=== PATIENT | male | born 1940 | race Caucasian/White ===

== ENCOUNTER 2024-04-15 | Inpatient (IN) | payer MEDICARE, OTHER ==
[~2024-04-15] VITALS: Ht 185.4 cm; Wt 83.5 kg
[~2024-04-15] MED LIST: ACET325T53 GT; ASCO500T10 GT; CARB-300 GT; CEFE1VIA3 IV; DOCU-141 GT; DULO30CA2 GT; FAMO40OR2 GT; FERR300L GT; FLUD0.1T3 PO; LACT1CAP72 GT; MULT-1185 GT; Nut.tx.glucose Intolerance,Soy GT; QUET25TA PO; RIVA10TA GT; TAMS-3 PO; TERA2CAP4 GT; TERA5CAP4 GT; ZINC1CAP2 GT
[2024-04-16] MEDS ORDERED: HYDROGEN PEROXIDE 3% 118 ML BOTTLE TP PRN (08:15)
[2024-04-16] MEDS ORDERED: REMEDY ESSENTIAL ZINC PASTE 113 GM TP PRN (08:15)
[2024-04-16] MEDS ORDERED: ACETAMINOPHEN 650 MG/20 ML UDC- SA PATIENTS-FEVER ONLY GT PRN (08:15)
[2024-04-16] MEDS ORDERED: ALBUTEROL SULFATE 2.5 MG/3 ML NEBU NEB PRN (08:15)
[2024-04-16] MEDS ORDERED: MAG HYDROX/AL HYDROX/SIMETH 30 ML LIQUID UDC GT PRN (08:15)
[2024-04-16] MEDS ORDERED: IPRATROPIUM BROMIDE 0.5 MG/2.5 ML NEBU NEB PRN (08:15)
[2024-04-16] MEDS: REMEDY ESSENTIAL ZINC PASTE 113 GM TP SCH (09:20)
[2024-04-16] MEDS: POLYETHYLENE GLYCOL 3350 238 GM POWDER PO SCH (09:20)
[2024-04-16] MEDS: VITAMINS A AND D 5 GM UD PKT TP SCH (09:20)
[2024-04-16] MEDS: DULOXETINE HCL 40 MG GT SCH (09:20)
[2024-04-16] MEDS: HARRIS FLUSH ENEMA PR SCH (09:20)
[2024-04-16] MEDS: FINASTERIDE 5 MG TABLET GT SCH (09:20)
[2024-04-16] MEDS: DOCUSATE SODIUM 100 MG/10 ML LIQUID UDC GT SCH (09:20)
[2024-04-16] MEDS: HYDROGEN PEROXIDE 3% 118 ML BOTTLE TP SCH (09:39)
[2024-04-16] MEDS: SIMETHICONE 80 MG TAB.CHEW GT SCH (12:00)
[2024-04-16] MEDS: BACLOFEN 10 MG TABLET GT SCH (13:37)
[2024-04-16] MEDS: ACIDOPHILUS/BULGARICUS CHEW TAB GT SCH (17:39)
[2024-04-16 20:03] VITALS: TEMP 98.1
[2024-04-16] MEDS: PROTEIN SUPPLEMENT (PROSTAT) 30 ML LIQUID GT SCH (21:52)
[2024-04-16] MEDS: MULTIVIT, IRON, MIN NO. 8, FA TABLET GT SCH (21:52)
[2024-04-17] MEDS: OMEPRAZOLE 20 MG CAPSULE.DR GT SCH (06:35)
[2024-04-17 07:52] VITALS: TEMP 98.9
[2024-04-17 19:59] VITALS: TEMP 97.4
[2024-04-18] MEDS: JEVITY 1.2 1000 ML LIQUID GT PRN (02:16)
[2024-04-18 07:58] VITALS: TEMP 97.1
[2024-04-18 20:01] VITALS: TEMP 97.7
[2024-04-19 07:34] VITALS: TEMP 97.6
[2024-04-19 19:58] VITALS: TEMP 98
[2024-04-19 22:35] VITALS: TEMP 98
[2024-04-20 07:30] VITALS: TEMP 97.7
[2024-04-20 08:36] LABS: BASOPHILS % (AUTO) 0.5 % (0.0-2.0); EOSINOPHILS # (AUTO) 0.3 K/uL (0.0-0.7); EOSINOPHILS % (AUTO) 4.5 % (0.0-7.0); HEMATOCRIT 33.8 % (36.7-47.1); HEMOGLOBIN 11.7 g/dL (12.5-16.3); LYMPHOCYTES # (AUTO) 1.4 K/uL (0.8-4.8); LYMPHOCYTES % (AUTO) 20.8 % (20.5-51.5); MEAN CORPUSCULAR HGB CONC 35 g/dL (32.5-36.3); MEAN CORPUSCULAR VOLUME 83.6 fL (73.0-96.2); MONOCYTES # (AUTO) 0.4 K/uL (0.1-1.30); MONOCYTES % (AUTO) 6.2 % (0.0-11.0); NEUTROPHILS # (AUTO) 4.7 K/uL (1.8-8.9); PLATELET COUNT (AUTO) 165 K/uL (152-348); RED BLOOD CELL COUNT(AUTO) 4.04 MIL/uL (4.06-5.63); RED CELL DISTRIBUTION WIDTH 15.8 % (12.1-16.2); WHITE BLOOD COUNT (AUTO) 6.9 K/uL (3.6-10.2)
[2024-04-20 08:40] LABS: DIFFERENTIAL COMMENT 1
[2024-04-20 08:52] LABS: CALCIUM 8.8 mg/dL (8.5-10.1); CARBON DIOXIDE 26 mmol/L (21-32); CHLORIDE 104 mmol/L (98-107); CREATININE 0.6 mg/dL (0.6-1.3); GLUCOSE 115 mg/dL (74-106); MAGNESIUM 1.9 mg/dL (1.8-2.4); PHOSPHOROUS 2.9 mg/dL (2.5-4.9); POTASSIUM 4.4 mmol/L (3.5-5.1); SODIUM SERUM 139 mmol/L (136-145); UREA NITROGEN, BLOOD 30 mg/dL (7-18)
[2024-04-20 19:54] VITALS: TEMP 98.3
[2024-04-20 22:58] VITALS: TEMP 98.3
[2024-04-21 07:26] VITALS: TEMP 98.5
[2024-04-21 19:51] VITALS: TEMP 97.6
[2024-04-22 07:51] VITALS: TEMP 97.9
[2024-04-22 19:49] VITALS: TEMP 97.6
[2024-04-23 07:30] VITALS: TEMP 97.9
[2024-04-23 20:17] VITALS: TEMP 97.7
[2024-04-24 08:25] VITALS: TEMP 97.6
[2024-04-24 10:00] VITALS: O2SAT 98
[2024-04-24 10:05] VITALS: O2SAT 98
[2024-04-24 20:00] VITALS: TEMP 98.8
[2024-04-25 08:09] VITALS: TEMP 97.6
[2024-04-25 20:00] VITALS: TEMP 97.7
[2024-04-26 20:00] VITALS: TEMP 97.5
[2024-04-27 07:26] VITALS: TEMP 98.5
[2024-04-27 20:00] VITALS: TEMP 97.6
[2024-04-28 07:24] VITALS: TEMP 99
[2024-04-28 20:00] VITALS: TEMP 97.7
[2024-04-29 07:29] VITALS: TEMP 97.8
[2024-04-29 20:30] VITALS: TEMP 97.6
[2024-04-30 07:58] VITALS: TEMP 98.6
[2024-04-30 20:00] VITALS: TEMP 98.5
[2024-05-01] MEDS: HARRIS FLUSH ENEMA PR PRN (04:25)
[2024-05-01 07:40] VITALS: TEMP 97.8
[2024-05-01] MEDS: MAGNESIUM HYDROXIDE 30 ML LIQUID UDC GT PRN (16:15)
[2024-05-01 20:06] VITALS: TEMP 98.5
[2024-05-02 08:22] VITALS: TEMP 94.5; TEMP 98.6
[2024-05-02 19:54] VITALS: TEMP 98
[2024-05-03 07:40] VITALS: TEMP 97.8
[2024-05-03 20:00] VITALS: TEMP 99
[2024-05-04 07:22] VITALS: TEMP 98.9
[2024-05-04 20:00] VITALS: TEMP 98.6
[2024-05-05 07:37] VITALS: TEMP 97.5
[2024-05-05 20:00] VITALS: TEMP 98.7
[2024-05-06 08:03] VITALS: TEMP 99.1
[2024-05-06 09:00] VITALS: TEMP 99.2
[2024-05-06 16:00] VITALS: TEMP 99.2
[2024-05-06 20:14] VITALS: TEMP 97.8
[2024-05-07 07:59] VITALS: TEMP 97.7
[2024-05-07 20:03] VITALS: TEMP 97.6
[2024-05-07] MEDS: POLYETHYLENE GLYCOL 3350 238 GM POWDER GT SCH (21:06)
[2024-05-08 07:51] VITALS: TEMP 98.7
[2024-05-08 20:19] VITALS: TEMP 99
[2024-05-09 08:15] VITALS: TEMP 99
[2024-05-09 19:59] VITALS: TEMP 98.3
[2024-05-10 07:45] VITALS: TEMP 98.3
[2024-05-10 20:00] VITALS: TEMP 98
[2024-05-11 07:31] VITALS: TEMP 98
[2024-05-11 19:58] VITALS: TEMP 98.2
[2024-05-11 20:00] VITALS: TEMP 98.2
[2024-05-12 07:34] VITALS: TEMP 98.7
[2024-05-12 20:00] VITALS: TEMP 98.1
[2024-05-13 07:31] VITALS: TEMP 98.4
[2024-05-13 20:00] VITALS: TEMP 97.7
[2024-05-14 08:09] VITALS: TEMP 98
[2024-05-14 20:04] VITALS: TEMP 98.4
[2024-05-15 07:45] VITALS: TEMP 97.9
[2024-05-15 20:22] VITALS: TEMP 98.1
[2024-05-16 08:01] VITALS: TEMP 97.7
[2024-05-16 20:00] VITALS: TEMP 98.4
[2024-05-17 07:22] VITALS: TEMP 97.5
[2024-05-17 20:06] VITALS: TEMP 97.9
[2024-05-18 07:52] VITALS: TEMP 98.3
[2024-05-18 11:32] VITALS: TEMP 98.3
[2024-05-18 20:00] VITALS: TEMP 98.4
[2024-05-19 07:23] VITALS: TEMP 98.2
[2024-05-19 19:47] VITALS: TEMP 98.3
[2024-05-20 07:54] VITALS: TEMP 99.8
[2024-05-20] MEDS: ACETAMINOPHEN 650 MG/20 ML UDC- SA PATIENTS-PAIN ONLY GT PRN (08:34)
[2024-05-20 09:34] VITALS: TEMP 98.7
[2024-05-20 20:00] VITALS: TEMP 97.7
[2024-05-21 07:44] VITALS: TEMP 98.4
[2024-05-21 19:54] VITALS: TEMP 97.6
[2024-05-22 07:58] VITALS: TEMP 98.4
[2024-05-22 20:51] VITALS: TEMP 97.9
[2024-05-23 08:08] VITALS: TEMP 99
[2024-05-23 19:46] VITALS: TEMP 97.6
[2024-05-23 19:55] VITALS: TEMP 98.4
[2024-05-24 07:49] VITALS: TEMP 97.8
[2024-05-24 08:39] LABS: BASOPHILS % (AUTO) 0.6 % (0.0-2.0); EOSINOPHILS # (AUTO) 0.2 K/uL (0.0-0.7); EOSINOPHILS % (AUTO) 3.6 % (0.0-7.0); HEMATOCRIT 33.7 % (36.7-47.1); HEMOGLOBIN 11.4 g/dL (12.5-16.3); LYMPHOCYTES # (AUTO) 1.7 K/uL (0.8-4.8); LYMPHOCYTES % (AUTO) 31.8 % (20.5-51.5); MEAN CORPUSCULAR HEMOGLOBIN 28.8 uug (23.8-33.4); MEAN CORPUSCULAR HGB CONC 34 g/dL (32.5-36.3); MEAN CORPUSCULAR VOLUME 85.4 fL (73.0-96.2); MONOCYTES # (AUTO) 0.4 K/uL (0.1-1.30); NEUTROPHILS # (AUTO) 3.1 K/uL (1.8-8.9); PLATELET COUNT (AUTO) 244 K/uL (152-348); RED BLOOD CELL COUNT(AUTO) 3.95 MIL/uL (4.06-5.63); WHITE BLOOD COUNT (AUTO) 5.4 K/uL (3.6-10.2)
[2024-05-24 08:52] LABS: CALCIUM 8.9 mg/dL (8.5-10.1); CARBON DIOXIDE 30 mmol/L (21-32); CHLORIDE 103 mmol/L (98-107); CREATININE 0.7 mg/dL (0.6-1.3); DIFFERENTIAL COMMENT 1; GLUCOSE 113 mg/dL (74-106); MAGNESIUM 2.1 mg/dL (1.8-2.4); PHOSPHOROUS 3.1 mg/dL (2.5-4.9); POTASSIUM 4.6 mmol/L (3.5-5.1); SODIUM SERUM 139 mmol/L (136-145); UREA NITROGEN, BLOOD 29 mg/dL (7-18)
[2024-05-24 20:23] VITALS: TEMP 97.9
[2024-05-25 10:30] VITALS: O2SAT 99
[2024-05-25 11:16] VITALS: TEMP 97.5
[2024-05-25 19:51] VITALS: TEMP 98.2
[2024-05-26 07:42] VITALS: TEMP 97.1
[2024-05-26 20:19] VITALS: TEMP 97.6
[2024-05-27 07:45] VITALS: TEMP 98.6
[2024-05-27 19:46] VITALS: TEMP 97.5
[2024-05-27 20:00] VITALS: TEMP 97.5
[2024-05-28 07:35] VITALS: TEMP 97.5
[2024-05-28 20:00] VITALS: TEMP 97.6
[2024-05-29 16:05] VITALS: TEMP 97.8
[2024-05-29 20:00] VITALS: TEMP 98.5
[2024-05-30 08:14] VITALS: TEMP 97.8
[2024-05-30 19:49] VITALS: TEMP 98.1
[2024-05-31 07:34] VITALS: TEMP 98.5
[2024-05-31 20:17] VITALS: TEMP 97.6
[2024-06-01 07:33] VITALS: TEMP 97.7
[2024-06-01 19:59] VITALS: TEMP 98.4
[2024-06-01 23:13] VITALS: TEMP 98.4
[2024-06-02 08:00] VITALS: TEMP 98.7
[2024-06-02 20:07] VITALS: TEMP 98.5
[2024-06-03] MEDS: NEOMY/BACITRA/POLYMYXIN B OINT UD PACKET TP SCH (09:00)
[2024-06-03 20:38] VITALS: TEMP 97.7
[2024-06-04 11:53] VITALS: TEMP 97.8
[2024-06-04 19:53] VITALS: TEMP 97.6
[2024-06-04 20:00] VITALS: TEMP 97.6
[2024-06-05 13:04] VITALS: TEMP 98
[2024-06-05 20:20] VITALS: TEMP 97.7
[2024-06-06 19:48] VITALS: TEMP 97.8
[2024-06-07 08:30] VITALS: TEMP 97.9
[2024-06-07 20:00] VITALS: TEMP 97.5
[2024-06-08 08:24] VITALS: TEMP 98.6
[2024-06-08 20:00] VITALS: TEMP 98.3
[2024-06-09 07:55] VITALS: TEMP 97.8
[2024-06-09 20:03] VITALS: TEMP 97.6
[2024-06-10] MEDS: POLYVINYL ALCOHOL OPHT DROPS 15 ML BOTTLE EACHEYE SCH (13:53)
[2024-06-10 20:51] VITALS: TEMP 100.9
[2024-06-11] MEDS: NEOMY/BACITRA/POLYMYXIN B OINT UD PACKET TP SCH (08:54)
[2024-06-11 09:38] LABS: BASOPHILS % (AUTO) 0.4 % (0.0-2.0); EOSINOPHILS # (AUTO) 0.1 K/uL (0.0-0.7); EOSINOPHILS % (AUTO) 1.9 % (0.0-7.0); HEMOGLOBIN 11.6 g/dL (12.5-16.3); LYMPHOCYTES # (AUTO) 1.3 K/uL (0.8-4.8); LYMPHOCYTES % (AUTO) 18.1 % (20.5-51.5); MEAN CORPUSCULAR HEMOGLOBIN 28.8 uug (23.8-33.4); MEAN CORPUSCULAR HGB CONC 33 g/dL (32.5-36.3); MEAN CORPUSCULAR VOLUME 86.7 fL (73.0-96.2); MONOCYTES # (AUTO) 0.8 K/uL (0.1-1.30); MONOCYTES % (AUTO) 10.4 % (0.0-11.0); NEUTROPHILS % (AUTO) 69.2 % (38.5-71.5); PLATELET COUNT (AUTO) 161 K/uL (152-348); RED BLOOD CELL COUNT(AUTO) 4.04 MIL/uL (4.06-5.63); RED CELL DISTRIBUTION WIDTH 14.9 % (12.1-16.2); WHITE BLOOD COUNT (AUTO) 7.3 K/uL (3.6-10.2)
[2024-06-11 09:49] VITALS: TEMP 98.5
[2024-06-11 09:54] LABS: CALCIUM 9.2 mg/dL (8.5-10.1); CARBON DIOXIDE 29 mmol/L (21-32); CHLORIDE 102 mmol/L (98-107); GLUCOSE 134 mg/dL (74-106); POTASSIUM 4.3 mmol/L (3.5-5.1); SODIUM SERUM 137 mmol/L (136-145); UREA NITROGEN, BLOOD 58 mg/dL (7-18)
[2024-06-11 19:47] VITALS: TEMP 97.9
[2024-06-12 07:58] VITALS: TEMP 96.7
[2024-06-12 19:46] VITALS: TEMP 98.8
[2024-06-13 08:00] VITALS: TEMP 97.6
[2024-06-13 21:03] VITALS: TEMP 98.5
[2024-06-14 08:00] VITALS: TEMP 97.8
[2024-06-14 20:00] VITALS: TEMP 98.5
[2024-06-15 08:00] VITALS: TEMP 98.2
[2024-06-15 19:56] VITALS: TEMP 97.6
[2024-06-16 07:44] VITALS: TEMP 98.5
[2024-06-16 20:04] VITALS: TEMP 98.7
[2024-06-17 07:50] VITALS: TEMP 98.7
[2024-06-17 21:41] VITALS: TEMP 97.5
[2024-06-18 08:00] VITALS: TEMP 97
[2024-06-18 20:44] VITALS: TEMP 98.7
[2024-06-19 08:42] VITALS: TEMP 98.7
[2024-06-19 20:00] VITALS: TEMP 98.7
[2024-06-20 08:13] VITALS: TEMP 98.6
[2024-06-20 20:00] VITALS: TEMP 98.7
[2024-06-21 07:59] VITALS: TEMP 98.3
[2024-06-21 20:50] VITALS: TEMP 98.6
[2024-06-22 07:31] VITALS: TEMP 97.8
[2024-06-22 10:30] VITALS: O2SAT 98
[2024-06-22 20:22] VITALS: TEMP 97.7
[2024-06-23 07:30] VITALS: TEMP 97.5
[2024-06-23 20:00] VITALS: TEMP 98.2
[2024-06-24 20:00] VITALS: TEMP 98.5
[2024-06-25 08:07] VITALS: TEMP 98.8
[2024-06-25 20:19] VITALS: TEMP 99.4
[2024-06-26 08:15] VITALS: TEMP 97.6
[2024-06-26 20:00] VITALS: TEMP 97.6
[2024-06-27 08:29] VITALS: TEMP 98.5
[2024-06-27 20:00] VITALS: TEMP 97.5
[2024-06-28 08:16] VITALS: TEMP 97.7
[2024-06-28 09:15] LABS: BASOPHILS % (AUTO) 0.4 % (0.0-2.0); EOSINOPHILS # (AUTO) 0.2 K/uL (0.0-0.7); EOSINOPHILS % (AUTO) 2.2 % (0.0-7.0); HEMATOCRIT 36.7 % (36.7-47.1); HEMOGLOBIN 12.5 g/dL (12.5-16.3); LYMPHOCYTES # (AUTO) 1.3 K/uL (0.8-4.8); LYMPHOCYTES % (AUTO) 13.1 % (20.5-51.5); MEAN CORPUSCULAR HEMOGLOBIN 28.9 uug (23.8-33.4); MEAN CORPUSCULAR HGB CONC 34 g/dL (32.5-36.3); MONOCYTES # (AUTO) 0.5 K/uL (0.1-1.30); NEUTROPHILS # (AUTO) 7.6 K/uL (1.8-8.9); NEUTROPHILS % (AUTO) 79.3 % (38.5-71.5); PLATELET COUNT (AUTO) 276 K/uL (152-348); RED BLOOD CELL COUNT(AUTO) 4.32 MIL/uL (4.06-5.63); RED CELL DISTRIBUTION WIDTH 14.7 % (12.1-16.2); WHITE BLOOD COUNT (AUTO) 9.6 K/uL (3.6-10.2)
[2024-06-28 09:20] LABS: DIFFERENTIAL COMMENT 1
[2024-06-28 09:30] LABS: CALCIUM 9.3 mg/dL (8.5-10.1); CARBON DIOXIDE 27 mmol/L (21-32); CHLORIDE 102 mmol/L (98-107); CREATININE 0.7 mg/dL (0.6-1.3); GLUCOSE 151 mg/dL (74-106); MAGNESIUM 2.2 mg/dL (1.8-2.4); PHOSPHOROUS 3.1 mg/dL (2.5-4.9); POTASSIUM 3.9 mmol/L (3.5-5.1); SODIUM SERUM 136 mmol/L (136-145); UREA NITROGEN, BLOOD 38 mg/dL (7-18)
[2024-06-28 20:00] VITALS: TEMP 97.9
[2024-06-29 08:04] VITALS: TEMP 98.7
[2024-06-29 20:00] VITALS: TEMP 98.7
[2024-06-30 11:13] VITALS: TEMP 98.1
[2024-06-30 20:00] VITALS: TEMP 98.8
[2024-07-01 07:13] VITALS: TEMP 98.4
[2024-07-01 20:04] VITALS: TEMP 97.6
[2024-07-01 20:37] VITALS: TEMP 97.7
[2024-07-02 08:00] VITALS: TEMP 97.6
[2024-07-02 20:00] VITALS: TEMP 97.7
[2024-07-03 08:07] VITALS: BP 134/73; TEMP 98.1; O2SAT 100
[2024-07-03 19:52] VITALS: TEMP 97.8
[2024-07-03 20:00] VITALS: TEMP 97.8
[2024-07-04 08:39] VITALS: TEMP 98.6
[2024-07-04 20:00] VITALS: TEMP 99.6
[2024-07-05 08:13] VITALS: TEMP 98
[2024-07-05 20:00] VITALS: TEMP 98.8
[2024-07-05 20:37] VITALS: TEMP 98.8
[2024-07-06 07:55] VITALS: TEMP 99
[2024-07-06 08:06] VITALS: TEMP 99
[2024-07-06 20:00] VITALS: TEMP 98.9
[2024-07-07 07:56] VITALS: BP 128/65; TEMP 98.8; O2SAT 99
[2024-07-07 20:00] VITALS: TEMP 98.7
[2024-07-08 08:00] VITALS: TEMP 98.5
[2024-07-08 10:27] VITALS: TEMP 98.5
[2024-07-08 20:00] VITALS: TEMP 98.6
[2024-07-09 08:03] VITALS: TEMP 97
[2024-07-09 20:04] VITALS: TEMP 97.9
[2024-07-10 07:41] VITALS: TEMP 98
[2024-07-10 20:00] VITALS: TEMP 98.6
[2024-07-11 08:15] VITALS: TEMP 97
[2024-07-11 20:00] VITALS: TEMP 98.4
[2024-07-12 07:45] VITALS: TEMP 98
[2024-07-12 21:55] VITALS: TEMP 98.7
[2024-07-13 08:00] VITALS: TEMP 98.7
[2024-07-13 20:22] VITALS: TEMP 98.5
[2024-07-14 07:51] VITALS: TEMP 98.2
[2024-07-14 19:57] VITALS: TEMP 98.5
[2024-07-14 23:25] VITALS: TEMP 98.5
[2024-07-15 07:49] VITALS: TEMP 97.8
[2024-07-15 20:04] VITALS: TEMP 97.4
[2024-07-16 07:42] VITALS: TEMP 97
[2024-07-16 19:54] VITALS: TEMP 97.6
[2024-07-17 07:52] VITALS: BP 138/65; TEMP 98.8; O2SAT 90
[2024-07-17 19:53] VITALS: TEMP 97.4
[2024-07-18 08:04] VITALS: TEMP 97
[2024-07-18 19:46] VITALS: TEMP 97.8
[2024-07-19 08:04] VITALS: TEMP 97.5
[2024-07-19 20:01] VITALS: TEMP 98.9
[2024-07-20 07:27] LABS: BASOPHILS % (AUTO) 0.2 % (0.0-2.0); EOSINOPHILS # (AUTO) 0.1 K/uL (0.0-0.7); EOSINOPHILS % (AUTO) 1.3 % (0.0-7.0); HEMATOCRIT 37.1 % (36.7-47.1); HEMOGLOBIN 12.4 g/dL (12.5-16.3); LYMPHOCYTES # (AUTO) 1.8 K/uL (0.8-4.8); LYMPHOCYTES % (AUTO) 17.2 % (20.5-51.5); MEAN CORPUSCULAR HEMOGLOBIN 28.5 uug (23.8-33.4); MEAN CORPUSCULAR HGB CONC 34 g/dL (32.5-36.3); MEAN CORPUSCULAR VOLUME 85.1 fL (73.0-96.2); MONOCYTES # (AUTO) 0.8 K/uL (0.1-1.30); MONOCYTES % (AUTO) 7.5 % (0.0-11.0); NEUTROPHILS # (AUTO) 7.9 K/uL (1.8-8.9); NEUTROPHILS % (AUTO) 73.8 % (38.5-71.5); PLATELET COUNT (AUTO) 285 K/uL (152-348); RED BLOOD CELL COUNT(AUTO) 4.36 MIL/uL (4.06-5.63); RED CELL DISTRIBUTION WIDTH 14.2 % (12.1-16.2); WHITE BLOOD COUNT (AUTO) 10.7 K/uL (3.6-10.2)
[2024-07-20 07:53] LABS: DIFFERENTIAL COMMENT 1
[2024-07-20 08:06] LABS: CALCIUM 9.3 mg/dL (8.5-10.1); CARBON DIOXIDE 31 mmol/L (21-32); CHLORIDE 105 mmol/L (98-107); CREATININE 0.6 mg/dL (0.6-1.3); GLUCOSE 121 mg/dL (74-106); MAGNESIUM 2.3 mg/dL (1.8-2.4); PHOSPHOROUS 3.4 mg/dL (2.5-4.9); POTASSIUM 4.4 mmol/L (3.5-5.1); SODIUM SERUM 140 mmol/L (136-145); UREA NITROGEN, BLOOD 32 mg/dL (7-18)
[2024-07-20 08:07] VITALS: TEMP 97
[2024-07-20] MEDS ORDERED: DIATR MEGLU/DIATRIZOATE SODIUM 30 ML BOTTLE ONE (10:31)
[2024-07-20 20:51] VITALS: TEMP 98
[2024-07-21] MEDS ORDERED: DIATR MEGLU/DIATRIZOATE SODIUM 30 ML BOTTLE ONE (02:43)
[2024-07-21 08:00] VITALS: TEMP 97.6
[2024-07-21 19:55] VITALS: TEMP 98
[2024-07-22 07:57] VITALS: TEMP 98.7
[2024-07-22 08:03] VITALS: TEMP 98.7
[2024-07-22 19:53] VITALS: TEMP 97
[2024-07-23 07:50] VITALS: O2SAT 98
[2024-07-23 08:00] VITALS: TEMP 98.1
[2024-07-23 20:17] VITALS: TEMP 98.5
[2024-07-24 07:55] VITALS: TEMP 97.5
[2024-07-24 20:10] VITALS: TEMP 98.7
[2024-07-25 07:52] VITALS: TEMP 97.6
[2024-07-25 20:00] VITALS: TEMP 98.8
[2024-07-26 11:24] VITALS: TEMP 97.8
[2024-07-26 20:00] VITALS: TEMP 99
[2024-07-27 07:32] VITALS: TEMP 97.8
[2024-07-27 20:43] VITALS: TEMP 98.2
[2024-07-27] MEDS: NYSTATIN CREAM 30 GM TUBE TP SCH ×2 (21:30→21:32)
[2024-07-28 07:33] VITALS: TEMP 98
[2024-07-28 20:53] VITALS: TEMP 98.5
[2024-07-29 07:45] VITALS: TEMP 99
[2024-07-29 20:16] VITALS: TEMP 98.6
[2024-07-30 07:48] VITALS: TEMP 98
[2024-07-30 22:29] VITALS: TEMP 97.7
[2024-07-31 07:47] VITALS: TEMP 97.8
[2024-07-31 19:49] VITALS: TEMP 98.3
[2024-08-01 08:30] VITALS: TEMP 97.6
[2024-08-01] MEDS: NEOMY/BACITRA/POLYMYXIN B OINT UD PACKET TP SCH (15:47)
[2024-08-01 20:05] VITALS: TEMP 98.7
[2024-08-02 07:42] LABS: *BILIRUBIN,URIN NEGATIVE (NEGATIVE); *BLOOD, URINE 2+ (NEGATIVE); *CLARITY,URINE CLEAR (CLEAR); *COLOR,URINE YELLOW (YELLOW); *KETONES,URINE NEGATIVE (NEGATIVE); *PROTEIN,URINE 2+ (NEGATIVE); *UROBILINOGEN,URINE 0.2 E.U./dl (NORMAL); LEUKOCYTE ESTERASE ,URINE 3+ (NEGATIVE); NITRITE, URINE NEGATIVE (NEGATIVE); PH,URINE 7.5 (5.0-8.0); UGLUCOSE NEGATIVE (NEGATIVE)
[2024-08-02 08:30] VITALS: TEMP 98.1
[2024-08-02 08:33] LABS: BACTERIA,URINE MANY /HPF (NONE SEEN); SQUAMOUS EPITHELIAL CELL,UR FEW /HPF (NONE SEEN); WBC,URINE TNTC /HPF (0-3)
[2024-08-02 20:00] VITALS: TEMP 97.4
[2024-08-03 07:47] VITALS: TEMP 98.9
[2024-08-03 15:10] LABS: BASOPHILS % (AUTO) 0.2 % (0.0-2.0); EOSINOPHILS % (AUTO) 0.2 % (0.0-7.0); HEMATOCRIT 39.3 % (36.7-47.1); LYMPHOCYTES # (AUTO) 1.3 K/uL (0.8-4.8); LYMPHOCYTES % (AUTO) 9.2 % (20.5-51.5); MEAN CORPUSCULAR HEMOGLOBIN 27.7 uug (23.8-33.4); MEAN CORPUSCULAR HGB CONC 33 g/dL (32.5-36.3); MONOCYTES # (AUTO) 0.7 K/uL (0.1-1.30); MONOCYTES % (AUTO) 5.1 % (0.0-11.0); NEUTROPHILS # (AUTO) 12.2 K/uL (1.8-8.9); NEUTROPHILS % (AUTO) 85.3 % (38.5-71.5); PLATELET COUNT (AUTO) 197 K/uL (152-348); RED BLOOD CELL COUNT(AUTO) 4.67 MIL/uL (4.06-5.63); RED CELL DISTRIBUTION WIDTH 14.6 % (12.1-16.2); WHITE BLOOD COUNT (AUTO) 14.3 K/uL (3.6-10.2)
[2024-08-03 15:16] LABS: CALCIUM 9.2 mg/dL (8.5-10.1); CARBON DIOXIDE 26 mmol/L (21-32); CHLORIDE 103 mmol/L (98-107); CREATININE 0.6 mg/dL (0.6-1.3); GLUCOSE 147 mg/dL (74-106); POTASSIUM 4.5 mmol/L (3.5-5.1); SODIUM SERUM 138 mmol/L (136-145); UREA NITROGEN, BLOOD 33 mg/dL (7-18)
[2024-08-03 15:47] LABS: DIFFERENTIAL COMMENT 1
[2024-08-03 20:11] VITALS: TEMP 100.8
[2024-08-04] VITALS: TEMP 99
[2024-08-04 05:00] VITALS: TEMP 98.8
[2024-08-04 07:36] VITALS: TEMP 99
[2024-08-04 19:47] VITALS: TEMP 98.5
[2024-08-04 20:57] LABS: *BILIRUBIN,URIN NEGATIVE (NEGATIVE); *BLOOD, URINE 2+ (NEGATIVE); *CLARITY,URINE CLOUDY (CLEAR); *COLOR,URINE YELLOW (YELLOW); *KETONES,URINE NEGATIVE (NEGATIVE); *UROBILINOGEN,URINE 0.2 E.U./dl (NORMAL); LEUKOCYTE ESTERASE ,URINE 3+ (NEGATIVE); NITRITE, URINE NEGATIVE (NEGATIVE); UGLUCOSE NEGATIVE (NEGATIVE)
[2024-08-04 21:01] LABS: *PROTEIN,URINE 3+ (NEGATIVE)
[2024-08-04 22:01] VITALS: TEMP 98.5
[2024-08-05 07:44] VITALS: TEMP 99
[2024-08-05 20:46] VITALS: TEMP 97.7
[2024-08-06] MEDS: IV D5/ 0.9% NACL 1,000 ML IV SCH (15:00)
[2024-08-06 17:42] LABS: *BILIRUBIN,URIN NEGATIVE (NEGATIVE); *BLOOD, URINE 2+ (NEGATIVE); *COLOR,URINE YELLOW (YELLOW); *KETONES,URINE NEGATIVE (NEGATIVE); *PROTEIN,URINE 3+ (NEGATIVE); LEUKOCYTE ESTERASE ,URINE 3+ (NEGATIVE); NITRITE, URINE POSITIVE (NEGATIVE); PH,URINE 8.5 (5.0-8.0); UGLUCOSE NEGATIVE (NEGATIVE)
[2024-08-06 18:04] LABS: *CLARITY,URINE CLOUDY (CLEAR)
[2024-08-06 18:32] LABS: BACTERIA,URINE MANY /HPF (NONE SEEN); SQUAMOUS EPITHELIAL CELL,UR FEW /HPF (NONE SEEN); WBC,URINE 50-80 /HPF (0-3)
[2024-08-06 18:33] LABS: TRIPLE PHOSPHATE CRYSTAL,UR MODERATE /HPF (NONE SEEN); URINE AMORPHOUS PHOSPHATES MANY /HPF
[2024-08-06 19:58] VITALS: TEMP 98.9
[2024-08-07 07:44] LABS: BASOPHILS % (AUTO) 0.6 % (0.0-2.0); EOSINOPHILS # (AUTO) 0.2 K/uL (0.0-0.7); EOSINOPHILS % (AUTO) 4.1 % (0.0-7.0); HEMATOCRIT 33.4 % (36.7-47.1); HEMOGLOBIN 11.1 g/dL (12.5-16.3); LYMPHOCYTES # (AUTO) 1.5 K/uL (0.8-4.8); LYMPHOCYTES % (AUTO) 24.4 % (20.5-51.5); MEAN CORPUSCULAR HEMOGLOBIN 28.3 uug (23.8-33.4); MEAN CORPUSCULAR HGB CONC 33 g/dL (32.5-36.3); MEAN CORPUSCULAR VOLUME 85.1 fL (73.0-96.2); MONOCYTES # (AUTO) 0.5 K/uL (0.1-1.30); MONOCYTES % (AUTO) 9.1 % (0.0-11.0); NEUTROPHILS # (AUTO) 3.7 K/uL (1.8-8.9); NEUTROPHILS % (AUTO) 61.8 % (38.5-71.5); PLATELET COUNT (AUTO) 203 K/uL (152-348); RED BLOOD CELL COUNT(AUTO) 3.93 MIL/uL (4.06-5.63); RED CELL DISTRIBUTION WIDTH 14.7 % (12.1-16.2)
[2024-08-07 07:47] LABS: DIFFERENTIAL COMMENT 1
[2024-08-07 07:49] VITALS: TEMP 98.4
[2024-08-07 07:57] LABS: ALANINE AMINOTRANSFERASE 17 U/L (16-63); ALBUMIN 2.2 g/dL (3.4-5.0); ALKALINE PHOSPHATASE 113 U/L (50-136); ASPARTATE AMINOTRANSFERASE 21 U/L (15-37); BILIRUBIN,TOTAL 0.9 mg/dL (0.2-1.0); CARBON DIOXIDE 26 mmol/L (21-32); CHLORIDE 108 mmol/L (98-107); CREATININE 0.6 mg/dL (0.6-1.3); GLUCOSE 116 mg/dL (74-106); POTASSIUM 3.9 mmol/L (3.5-5.1); SODIUM SERUM 144 mmol/L (136-145); TOTAL PROTEIN, SERUM 6.9 g/dL (6.4-8.2); UREA NITROGEN, BLOOD 34 mg/dL (7-18)
[2024-08-07 20:18] VITALS: TEMP 98.8
[2024-08-08 07:48] VITALS: TEMP 99.9
[2024-08-08] MEDS: FLEET ENEMA 133 ML BOTTLE RC PRN (10:04)
[2024-08-08] MEDS: MEROPENEM 1 G in IV NORMAL SALINE 100 ML IV SCH (13:15)
[2024-08-08] MEDS: VANCOMYCIN IV 1,250 MG in IV DEXTROSE 5% 250 ML IV SCH (14:05)
[2024-08-08 16:24] VITALS: TEMP 99.1
[2024-08-08] MEDS: BISACODYL 10 MG SUPP.RECT RC PRN (18:48)
[2024-08-08] MEDS: IV D5/ 0.9% NACL 1,000 ML IV PRN (20:00)
[2024-08-08 20:11] VITALS: TEMP 98.8
[2024-08-09 07:46] VITALS: TEMP 98.9
[2024-08-09] MEDS: SODIUM HYPOCHLORITE 0.125% (QUARTER STRENGTH) 473 ML BOTTLE TP SCH (09:38)
[2024-08-09 13:13] VITALS: TEMP 98
[2024-08-09 20:44] VITALS: TEMP 97.8
[2024-08-10 07:35] VITALS: TEMP 98.5
[2024-08-10 07:38] LABS: BASOPHILS % (AUTO) 0.5 % (0.0-2.0); EOSINOPHILS # (AUTO) 0.3 K/uL (0.0-0.7); EOSINOPHILS % (AUTO) 6.9 % (0.0-7.0); HEMATOCRIT 35.1 % (36.7-47.1); HEMOGLOBIN 11.9 g/dL (12.5-16.3); LYMPHOCYTES % (AUTO) 21.5 % (20.5-51.5); MEAN CORPUSCULAR HEMOGLOBIN 28.7 uug (23.8-33.4); MEAN CORPUSCULAR HGB CONC 34 g/dL (32.5-36.3); MEAN CORPUSCULAR VOLUME 84.4 fL (73.0-96.2); MONOCYTES # (AUTO) 0.4 K/uL (0.1-1.30); MONOCYTES % (AUTO) 8.9 % (0.0-11.0); NEUTROPHILS % (AUTO) 62.2 % (38.5-71.5); PLATELET COUNT (AUTO) 224 K/uL (152-348); RED BLOOD CELL COUNT(AUTO) 4.16 MIL/uL (4.06-5.63); RED CELL DISTRIBUTION WIDTH 14.5 % (12.1-16.2); WHITE BLOOD COUNT (AUTO) 4.8 K/uL (3.6-10.2)
[2024-08-10 07:40] LABS: DIFFERENTIAL COMMENT 1
[2024-08-10 07:51] LABS: VANCOMYCIN,TROUGH 20.2 ug/mL (10.0-20.0)
[2024-08-10 07:57] LABS: CALCIUM 7.7 mg/dL (8.5-10.1); CARBON DIOXIDE 25 mmol/L (21-32); CHLORIDE 112 mmol/L (98-107); CREATININE 0.7 mg/dL (0.6-1.3); GLUCOSE 116 mg/dL (74-106); SODIUM SERUM 147 mmol/L (136-145); UREA NITROGEN, BLOOD 15 mg/dL (7-18)
[2024-08-10 07:58] LABS: POTASSIUM 2.1 mmol/L (3.5-5.1)
[2024-08-10] MEDS: POTASSIUM CHLORIDE 40 MEQ in IV D5/ 0.9% NACL 1,000 ML IV SCH (10:25)
[2024-08-10] MEDS: VANCOMYCIN IV 1,000 MG in IV DEXTROSE 5% 250 ML IV SCH (14:37)
[2024-08-10 21:44] VITALS: TEMP 97.8
[2024-08-11 07:25] VITALS: TEMP 97.8
[2024-08-11 09:24] LABS: BASOPHILS % (AUTO) 0.4 % (0.0-2.0); EOSINOPHILS # (AUTO) 0.2 K/uL (0.0-0.7); EOSINOPHILS % (AUTO) 3.4 % (0.0-7.0); HEMATOCRIT 40.3 % (36.7-47.1); HEMOGLOBIN 13.7 g/dL (12.5-16.3); LYMPHOCYTES # (AUTO) 1.4 K/uL (0.8-4.8); LYMPHOCYTES % (AUTO) 22.2 % (20.5-51.5); MEAN CORPUSCULAR HEMOGLOBIN 28.3 uug (23.8-33.4); MEAN CORPUSCULAR HGB CONC 34 g/dL (32.5-36.3); MEAN CORPUSCULAR VOLUME 83.3 fL (73.0-96.2); MONOCYTES # (AUTO) 0.5 K/uL (0.1-1.30); NEUTROPHILS # (AUTO) 4.3 K/uL (1.8-8.9); PLATELET COUNT (AUTO) 296 K/uL (152-348); RED BLOOD CELL COUNT(AUTO) 4.84 MIL/uL (4.06-5.63); RED CELL DISTRIBUTION WIDTH 14.7 % (12.1-16.2); WHITE BLOOD COUNT (AUTO) 6.5 K/uL (3.6-10.2)
[2024-08-11 09:39] LABS: ALANINE AMINOTRANSFERASE 63 U/L (16-63); ALBUMIN 2.4 g/dL (3.4-5.0); ALKALINE PHOSPHATASE 133 U/L (50-136); ASPARTATE AMINOTRANSFERASE 47 U/L (15-37); CARBON DIOXIDE 27 mmol/L (21-32); CHLORIDE 109 mmol/L (98-107); CREATININE 0.7 mg/dL (0.6-1.3); GLUCOSE 129 mg/dL (74-106); SODIUM SERUM 146 mmol/L (136-145); TOTAL PROTEIN, SERUM 7.4 g/dL (6.4-8.2); UREA NITROGEN, BLOOD 10 mg/dL (7-18)
[2024-08-11 09:43] LABS: DIFFERENTIAL COMMENT 1
[2024-08-11 09:54] LABS: POTASSIUM 2.6 mmol/L (3.5-5.1)
[2024-08-11] MEDS: POTASSIUM CHLORIDE 50 ML IV SCH (20:00)
[2024-08-11 22:40] VITALS: TEMP 98
[2024-08-12 07:35] VITALS: TEMP 98.5
[2024-08-12 07:51] LABS: CALCIUM 8.4 mg/dL (8.5-10.1); CARBON DIOXIDE 24 mmol/L (21-32); CHLORIDE 116 mmol/L (98-107); CREATININE 0.8 mg/dL (0.6-1.3); GLUCOSE 122 mg/dL (74-106); SODIUM SERUM 150 mmol/L (136-145); UREA NITROGEN, BLOOD 11 mg/dL (7-18)
[2024-08-12 08:04] LABS: VANCOMYCIN,TROUGH 25.5 ug/mL (10.0-20.0)
[2024-08-12] MEDS: POTASSIUM CHLORIDE 50 ML IV SCH (16:30)
[2024-08-12 20:30] VITALS: TEMP 98.6
[2024-08-13 06:54] LABS: BASOPHILS % (AUTO) 0.5 % (0.0-2.0); EOSINOPHILS # (AUTO) 0.1 K/uL (0.0-0.7); EOSINOPHILS % (AUTO) 1.4 % (0.0-7.0); HEMATOCRIT 36.9 % (36.7-47.1); HEMOGLOBIN 12.5 g/dL (12.5-16.3); LYMPHOCYTES # (AUTO) 1.5 K/uL (0.8-4.8); LYMPHOCYTES % (AUTO) 17.9 % (20.5-51.5); MEAN CORPUSCULAR HEMOGLOBIN 28.5 uug (23.8-33.4); MEAN CORPUSCULAR HGB CONC 34 g/dL (32.5-36.3); MEAN CORPUSCULAR VOLUME 83.9 fL (73.0-96.2); MONOCYTES # (AUTO) 0.5 K/uL (0.1-1.30); MONOCYTES % (AUTO) 6.8 % (0.0-11.0); NEUTROPHILS # (AUTO) 5.9 K/uL (1.8-8.9); NEUTROPHILS % (AUTO) 73.4 % (38.5-71.5); PLATELET COUNT (AUTO) 269 K/uL (152-348); RED CELL DISTRIBUTION WIDTH 14.6 % (12.1-16.2); WHITE BLOOD COUNT (AUTO) 8.1 K/uL (3.6-10.2)
[2024-08-13 06:58] LABS: CALCIUM 8.5 mg/dL (8.5-10.1); CARBON DIOXIDE 25 mmol/L (21-32); CHLORIDE 117 mmol/L (98-107); CREATININE 0.8 mg/dL (0.6-1.3); GLUCOSE 111 mg/dL (74-106); POTASSIUM 3.3 mmol/L (3.5-5.1); SODIUM SERUM 151 mmol/L (136-145); UREA NITROGEN, BLOOD 9 mg/dL (7-18); VANCOMYCIN,RANDOM 15.1 ug/mL (20.0-30.0)
[2024-08-13 07:00] LABS: DIFFERENTIAL COMMENT 1
[2024-08-13 08:00] VITALS: TEMP 98.4
[2024-08-13] MEDS: VANCOMYCIN HCL 750 MG in IV DEXTROSE 5% 250 ML IV ONE (08:43)
[2024-08-13] MEDS: POTASSIUM CHLORIDE 10 MEQ TAB.PRT.SR XX ONE (14:58)
[2024-08-13 19:37] VITALS: TEMP 98.3
[2024-08-13] MEDS: POTASSIUM CHLORIDE 40 MEQ in IV D5W 1000ML 1,000 ML IV PRN (20:45)
[2024-08-14 07:39] VITALS: TEMP 97.9
[2024-08-14] MEDS: VANCOMYCIN HCL 750 MG in IV DEXTROSE 5% 250 ML IV ONE (13:08)
[2024-08-14 19:51] VITALS: TEMP 97.5
[2024-08-14] MEDS: POTASSIUM CHLORIDE 40 MEQ in IV D5W 1000ML 1,000 ML IV SCH (20:24)
[2024-08-14 20:59] VITALS: O2SAT 100
[2024-08-15 06:59] LABS: BASOPHILS % (AUTO) 0.6 % (0.0-2.0); EOSINOPHILS # (AUTO) 0.6 K/uL (0.0-0.7); EOSINOPHILS % (AUTO) 9.3 % (0.0-7.0); LYMPHOCYTES # (AUTO) 1.9 K/uL (0.8-4.8); LYMPHOCYTES % (AUTO) 29.9 % (20.5-51.5); MEAN CORPUSCULAR HEMOGLOBIN 28.1 uug (23.8-33.4); MEAN CORPUSCULAR HGB CONC 33 g/dL (32.5-36.3); MEAN CORPUSCULAR VOLUME 83.9 fL (73.0-96.2); MONOCYTES # (AUTO) 0.4 K/uL (0.1-1.30); NEUTROPHILS # (AUTO) 3.4 K/uL (1.8-8.9); NEUTROPHILS % (AUTO) 54.2 % (38.5-71.5); PLATELET COUNT (AUTO) 215 K/uL (152-348); RED BLOOD CELL COUNT(AUTO) 4.28 MIL/uL (4.06-5.63); RED CELL DISTRIBUTION WIDTH 14.5 % (12.1-16.2); WHITE BLOOD COUNT (AUTO) 6.4 K/uL (3.6-10.2)
[2024-08-15 07:06] LABS: DIFFERENTIAL COMMENT 1
[2024-08-15 07:16] LABS: CALCIUM 8.4 mg/dL (8.5-10.1); CARBON DIOXIDE 26 mmol/L (21-32); CHLORIDE 109 mmol/L (98-107); CREATININE 0.7 mg/dL (0.6-1.3); GLUCOSE 110 mg/dL (74-106); POTASSIUM 3.3 mmol/L (3.5-5.1); SODIUM SERUM 141 mmol/L (136-145); UREA NITROGEN, BLOOD 13 mg/dL (7-18)
[2024-08-15 07:39] VITALS: TEMP 97.8
[2024-08-15] MEDS: VANCOMYCIN HCL 750 MG in IV DEXTROSE 5% 250 ML IV SCH (13:15)
[2024-08-15] MEDS: POTASSIUM CHLORIDE 10 MEQ TAB.PRT.SR XX ONE (14:38)
[2024-08-15 19:47] VITALS: TEMP 97.6
[2024-08-16 07:47] VITALS: TEMP 97.6
[2024-08-16 19:40] VITALS: TEMP 98.2
[2024-08-17 06:56] LABS: BASOPHILS % (AUTO) 0.3 % (0.0-2.0); EOSINOPHILS # (AUTO) 0.4 K/uL (0.0-0.7); EOSINOPHILS % (AUTO) 5.6 % (0.0-7.0); HEMATOCRIT 38.2 % (36.7-47.1); HEMOGLOBIN 13.1 g/dL (12.5-16.3); LYMPHOCYTES # (AUTO) 2.3 K/uL (0.8-4.8); LYMPHOCYTES % (AUTO) 32.6 % (20.5-51.5); MEAN CORPUSCULAR HEMOGLOBIN 28.6 uug (23.8-33.4); MEAN CORPUSCULAR HGB CONC 34 g/dL (32.5-36.3); MEAN CORPUSCULAR VOLUME 83.4 fL (73.0-96.2); MONOCYTES # (AUTO) 0.5 K/uL (0.1-1.30); MONOCYTES % (AUTO) 7.5 % (0.0-11.0); NEUTROPHILS # (AUTO) 3.8 K/uL (1.8-8.9); PLATELET COUNT (AUTO) 216 K/uL (152-348); RED BLOOD CELL COUNT(AUTO) 4.58 MIL/uL (4.06-5.63); RED CELL DISTRIBUTION WIDTH 14.9 % (12.1-16.2); WHITE BLOOD COUNT (AUTO) 7.1 K/uL (3.6-10.2)
[2024-08-17 07:09] LABS: ALANINE AMINOTRANSFERASE 29 U/L (16-63); ALKALINE PHOSPHATASE 115 U/L (50-136); ASPARTATE AMINOTRANSFERASE 32 U/L (15-37); BILIRUBIN,TOTAL 0.4 mg/dL (0.2-1.0); CALCIUM 9.1 mg/dL (8.5-10.1); CARBON DIOXIDE 28 mmol/L (21-32); CHLORIDE 107 mmol/L (98-107); CREATININE 0.8 mg/dL (0.6-1.3); GLUCOSE 110 mg/dL (74-106); MAGNESIUM 2.2 mg/dL (1.8-2.4); PHOSPHOROUS 2.5 mg/dL (2.5-4.9); POTASSIUM 5.5 mmol/L (3.5-5.1); SODIUM SERUM 139 mmol/L (136-145); TOTAL PROTEIN, SERUM 6.1 g/dL (6.4-8.2); UREA NITROGEN, BLOOD 17 mg/dL (7-18)
[2024-08-17 07:19] LABS: DIFFERENTIAL COMMENT 1
[2024-08-17 07:27] VITALS: TEMP 98.5
[2024-08-17 20:50] VITALS: TEMP 97.4
[2024-08-18 07:30] VITALS: TEMP 98.3
[2024-08-18 20:58] VITALS: TEMP 97.6
[2024-08-19 07:25] VITALS: TEMP 98.6
[2024-08-19 19:53] VITALS: TEMP 96.5
[2024-08-20 11:04] VITALS: BP 114/61; TEMP 98.8; O2SAT 94
[2024-08-20 19:49] VITALS: TEMP 97.2
[2024-08-21 07:41] VITALS: TEMP 98.6
[2024-08-21 20:45] VITALS: TEMP 98.7
[2024-08-22 08:12] VITALS: TEMP 98.7
[2024-08-22 10:00] VITALS: O2SAT 99
[2024-08-22] MEDS: NEOMY/BACITRA/POLYMYXIN B OINT UD PACKET TP SCH (20:43)
[2024-08-22 21:59] VITALS: BP 111/52; TEMP 98.8; O2SAT 99
[2024-08-23 08:44] VITALS: TEMP 99
[2024-08-23 20:57] VITALS: TEMP 98.6
[2024-08-24 07:34] LABS: BASOPHILS % (AUTO) 0.7 % (0.0-2.0); EOSINOPHILS # (AUTO) 0.3 K/uL (0.0-0.7); EOSINOPHILS % (AUTO) 5.2 % (0.0-7.0); HEMATOCRIT 33.7 % (36.7-47.1); HEMOGLOBIN 11.3 g/dL (12.5-16.3); LYMPHOCYTES % (AUTO) 31.6 % (20.5-51.5); MEAN CORPUSCULAR HEMOGLOBIN 28.1 uug (23.8-33.4); MEAN CORPUSCULAR HGB CONC 34 g/dL (32.5-36.3); MEAN CORPUSCULAR VOLUME 83.5 fL (73.0-96.2); MONOCYTES # (AUTO) 0.7 K/uL (0.1-1.30); MONOCYTES % (AUTO) 10.8 % (0.0-11.0); NEUTROPHILS # (AUTO) 3.3 K/uL (1.8-8.9); NEUTROPHILS % (AUTO) 51.7 % (38.5-71.5); PLATELET COUNT (AUTO) 219 K/uL (152-348); RED BLOOD CELL COUNT(AUTO) 4.04 MIL/uL (4.06-5.63); RED CELL DISTRIBUTION WIDTH 15.2 % (12.1-16.2); WHITE BLOOD COUNT (AUTO) 6.4 K/uL (3.6-10.2)
[2024-08-24 07:47] VITALS: TEMP 98.7
[2024-08-24 07:49] LABS: CARBON DIOXIDE 26 mmol/L (21-32); CHLORIDE 105 mmol/L (98-107); GLUCOSE 107 mg/dL (74-106); POTASSIUM 4.3 mmol/L (3.5-5.1); SODIUM SERUM 138 mmol/L (136-145); UREA NITROGEN, BLOOD 43 mg/dL (7-18)
[2024-08-24 08:22] LABS: DIFFERENTIAL COMMENT 1
[2024-08-24] MEDS: MAGNESIUM HYDROXIDE 30 ML LIQUID UDC PO SCH (20:18)
[2024-08-24 20:40] VITALS: TEMP 98
[2024-08-25 07:55] VITALS: TEMP 97
[2024-08-25 20:00] VITALS: TEMP 96.4
[2024-08-26 04:00] VITALS: TEMP 97.6
[2024-08-26 07:34] VITALS: TEMP 98.4
[2024-08-26 20:00] VITALS: TEMP 97.8
[2024-08-27 07:51] VITALS: TEMP 97.6
[2024-08-27 19:50] VITALS: TEMP 97.6
[2024-08-28 07:41] VITALS: TEMP 98
[2024-08-28 20:02] VITALS: TEMP 98.2
[2024-08-29 19:55] VITALS: TEMP 98.1
[2024-08-30 08:27] VITALS: TEMP 98.2
[2024-08-30 20:04] VITALS: TEMP 98.6
[2024-08-31 07:25] VITALS: TEMP 98.9
[2024-08-31 20:15] VITALS: TEMP 97.5
[2024-09-01 07:33] VITALS: TEMP 97.9
[2024-09-01 20:00] VITALS: TEMP 97.1
[2024-09-02 07:32] VITALS: TEMP 97.7
[2024-09-02 16:10] LABS: CALCIUM 8.8 mg/dL (8.5-10.1); CARBON DIOXIDE 27 mmol/L (21-32); CHLORIDE 102 mmol/L (98-107); CREATININE 0.6 mg/dL (0.6-1.3); GLUCOSE 99 mg/dL (74-106); POTASSIUM 4.7 mmol/L (3.5-5.1); SODIUM SERUM 138 mmol/L (136-145); UREA NITROGEN, BLOOD 31 mg/dL (7-18)
[2024-09-02 16:16] LABS: ALANINE AMINOTRANSFERASE 23 U/L (16-63); ALBUMIN 2.5 g/dL (3.4-5.0); ALKALINE PHOSPHATASE 136 U/L (50-136); ASPARTATE AMINOTRANSFERASE 22 U/L (15-37); BILIRUBIN,TOTAL 0.6 mg/dL (0.2-1.0); TOTAL PROTEIN, SERUM 7.3 g/dL (6.4-8.2)
[2024-09-02 20:00] VITALS: TEMP 98.1
[2024-09-03 07:45] VITALS: TEMP 97.6
[2024-09-03] MEDS ORDERED: IV D5/ 0.9% NACL 1,000 ML IV PRN (18:45)
[2024-09-03 19:57] VITALS: TEMP 98.5
[2024-09-03] MEDS: IV D5/ 0.9% NACL 1,000 ML IV SCH (20:00)
[2024-09-04 08:07] VITALS: TEMP 98.2
[2024-09-04] MEDS: IV D5/ 0.9% NACL 1,000 ML IV PRN (17:15)
[2024-09-04 19:35] VITALS: TEMP 98.8
[2024-09-04 22:07] VITALS: TEMP 98.8
[2024-09-05 08:26] VITALS: TEMP 97.9
[2024-09-05] MEDS: NEOMY/BACITRA/POLYMYXIN B OINT UD PACKET TP SCH (09:00)
[2024-09-06 07:34] VITALS: TEMP 98.9
[2024-09-06 19:52] VITALS: TEMP 99.1
[2024-09-06] MEDS: NITROGLYCERIN OINT 1 GM PACKET TP PRN (22:19)
[2024-09-07 06:57] LABS: BASOPHILS % (AUTO) 0.2 % (0.0-2.0); EOSINOPHILS # (AUTO) 0.1 K/uL (0.0-0.7); EOSINOPHILS % (AUTO) 2.1 % (0.0-7.0); HEMATOCRIT 33.4 % (36.7-47.1); HEMOGLOBIN 11.3 g/dL (12.5-16.3); LYMPHOCYTES # (AUTO) 1.1 K/uL (0.8-4.8); LYMPHOCYTES % (AUTO) 15.9 % (20.5-51.5); MEAN CORPUSCULAR HEMOGLOBIN 28.2 uug (23.8-33.4); MEAN CORPUSCULAR HGB CONC 34 g/dL (32.5-36.3); MEAN CORPUSCULAR VOLUME 83.1 fL (73.0-96.2); MONOCYTES # (AUTO) 0.7 K/uL (0.1-1.30); MONOCYTES % (AUTO) 9.6 % (0.0-11.0); NEUTROPHILS % (AUTO) 72.2 % (38.5-71.5); PLATELET COUNT (AUTO) 187 K/uL (152-348); RED BLOOD CELL COUNT(AUTO) 4.02 MIL/uL (4.06-5.63); RED CELL DISTRIBUTION WIDTH 15.2 % (12.1-16.2)
[2024-09-07 07:03] LABS: DIFFERENTIAL COMMENT 1
[2024-09-07 07:09] LABS: CALCIUM 8.3 mg/dL (8.5-10.1); CARBON DIOXIDE 22 mmol/L (21-32); CHLORIDE 106 mmol/L (98-107); CREATININE 0.6 mg/dL (0.6-1.3); GLUCOSE 136 mg/dL (74-106); MAGNESIUM 1.6 mg/dL (1.8-2.4); PHOSPHOROUS 2.3 mg/dL (2.5-4.9); POTASSIUM 2.9 mmol/L (3.5-5.1); SODIUM SERUM 139 mmol/L (136-145); UREA NITROGEN, BLOOD 6 mg/dL (7-18)
[2024-09-07 07:30] VITALS: TEMP 97.6
[2024-09-07] MEDS: POTASSIUM CHLORIDE 40 MEQ in IV D5/ 0.9% NACL 1,000 ML IV PRN (10:07)
[2024-09-07 15:49] LABS: CALCIUM 9.1 mg/dL (8.5-10.1); CARBON DIOXIDE 23 mmol/L (21-32); CHLORIDE 108 mmol/L (98-107); CREATININE 0.6 mg/dL (0.6-1.3); GLUCOSE 142 mg/dL (74-106); POTASSIUM 3.3 mmol/L (3.5-5.1); SODIUM SERUM 141 mmol/L (136-145); UREA NITROGEN, BLOOD 9 mg/dL (7-18)
[2024-09-07] MEDS ORDERED: NEUTRA PHOS PACKET GT ONE (17:00)
[2024-09-07] MEDS: NEUTRA PHOS PACKET GT ONE (18:05)
[2024-09-07 20:12] VITALS: TEMP 97.1
[2024-09-08 03:15] VITALS: TEMP 97.7
[2024-09-08 04:51] VITALS: TEMP 97.8
[2024-09-08 07:29] VITALS: TEMP 98.8
[2024-09-08 20:00] VITALS: TEMP 97.5
[2024-09-08] MEDS ORDERED: METOCLOPRAMIDE HCL 10 MG TABLET GT SCH ×2 (21:00)
[2024-09-08] MEDS ORDERED: TPN/PPN PER PHARMACY IV PRN (21:30)
[2024-09-09] MEDS ORDERED: JEVITY 1.2 1000 ML LIQUID GT PRN (06:45)
[2024-09-09 07:59] VITALS: TEMP 97.8
[2024-09-09 08:33] LABS: BASOPHILS % (AUTO) 0.3 % (0.0-2.0); EOSINOPHILS # (AUTO) 0.3 K/uL (0.0-0.7); EOSINOPHILS % (AUTO) 5.1 % (0.0-7.0); HEMATOCRIT 37.1 % (36.7-47.1); HEMOGLOBIN 12.4 g/dL (12.5-16.3); LYMPHOCYTES # (AUTO) 1.5 K/uL (0.8-4.8); LYMPHOCYTES % (AUTO) 24.3 % (20.5-51.5); MEAN CORPUSCULAR HEMOGLOBIN 28.1 uug (23.8-33.4); MEAN CORPUSCULAR HGB CONC 34 g/dL (32.5-36.3); MEAN CORPUSCULAR VOLUME 83.9 fL (73.0-96.2); MONOCYTES # (AUTO) 0.4 K/uL (0.1-1.30); MONOCYTES % (AUTO) 6.7 % (0.0-11.0); NEUTROPHILS # (AUTO) 4.1 K/uL (1.8-8.9); NEUTROPHILS % (AUTO) 63.6 % (38.5-71.5); PLATELET COUNT (AUTO) 218 K/uL (152-348); RED BLOOD CELL COUNT(AUTO) 4.42 MIL/uL (4.06-5.63); RED CELL DISTRIBUTION WIDTH 15.6 % (12.1-16.2); WHITE BLOOD COUNT (AUTO) 6.4 K/uL (3.6-10.2)
[2024-09-09 08:47] LABS: DIFFERENTIAL COMMENT 1
[2024-09-09 08:49] LABS: CALCIUM 9.3 mg/dL (8.5-10.1); CARBON DIOXIDE 23 mmol/L (21-32); CHLORIDE 106 mmol/L (98-107); CREATININE 0.6 mg/dL (0.6-1.3); GLUCOSE 109 mg/dL (74-106); POTASSIUM 4.1 mmol/L (3.5-5.1); SODIUM SERUM 139 mmol/L (136-145); UREA NITROGEN, BLOOD 16 mg/dL (7-18)
[2024-09-09] MEDS: PROTEIN SUPPLEMENT (PROSTAT) 30 ML LIQUID GT SCH (16:47)
[2024-09-09 20:00] VITALS: TEMP 99.3
[2024-09-10 07:48] VITALS: BP 161/82; TEMP 98.9; O2SAT 98
[2024-09-10 20:00] VITALS: TEMP 98.2
[2024-09-10] MEDS: JEVITY 1.2 1000 ML LIQUID GT PRN (22:38)
[2024-09-11 08:10] VITALS: TEMP 98.1
[2024-09-11 20:04] VITALS: TEMP 98.6
[2024-09-12 07:47] VITALS: TEMP 97.8
[2024-09-12 20:10] VITALS: TEMP 97.6
[2024-09-13] MEDS ORDERED: BACLOFEN 5 MG GT SCH (06:00)
[2024-09-13 07:44] VITALS: TEMP 98.5
[2024-09-13] MEDS: BACLOFEN 5 MG GT SCH (13:12)
[2024-09-13 20:00] VITALS: TEMP 97.7
[2024-09-14 05:47] LABS: BASOPHILS % (AUTO) 0.3 % (0.0-2.0); EOSINOPHILS # (AUTO) 0.3 K/uL (0.0-0.7); EOSINOPHILS % (AUTO) 3.6 % (0.0-7.0); LYMPHOCYTES # (AUTO) 1.7 K/uL (0.8-4.8); LYMPHOCYTES % (AUTO) 20.4 % (20.5-51.5); MEAN CORPUSCULAR HEMOGLOBIN 27.7 uug (23.8-33.4); MEAN CORPUSCULAR HGB CONC 34 g/dL (32.5-36.3); MEAN CORPUSCULAR VOLUME 81.2 fL (73.0-96.2); MONOCYTES # (AUTO) 0.7 K/uL (0.1-1.30); MONOCYTES % (AUTO) 8.6 % (0.0-11.0); NEUTROPHILS # (AUTO) 5.5 K/uL (1.8-8.9); NEUTROPHILS % (AUTO) 67.1 % (38.5-71.5); PLATELET COUNT (AUTO) 277 K/uL (152-348); RED BLOOD CELL COUNT(AUTO) 4.68 MIL/uL (4.06-5.63); RED CELL DISTRIBUTION WIDTH 14.9 % (12.1-16.2); WHITE BLOOD COUNT (AUTO) 8.1 K/uL (3.6-10.2)
[2024-09-14 06:00] LABS: ALANINE AMINOTRANSFERASE 22 U/L (16-63); ALBUMIN 2.3 g/dL (3.4-5.0); ALKALINE PHOSPHATASE 130 U/L (50-136); ASPARTATE AMINOTRANSFERASE 20 U/L (15-37); BILIRUBIN,DIRECT 0.1 mg/dL (0.0-0.2); BILIRUBIN,TOTAL 0.4 mg/dL (0.2-1.0); CALCIUM 9.1 mg/dL (8.5-10.1); CARBON DIOXIDE 25 mmol/L (21-32); CHLORIDE 101 mmol/L (98-107); CREATININE 0.7 mg/dL (0.6-1.3); GLUCOSE 120 mg/dL (74-106); MAGNESIUM 2.1 mg/dL (1.8-2.4); PHOSPHOROUS 3.1 mg/dL (2.5-4.9); POTASSIUM 4.3 mmol/L (3.5-5.1); SODIUM SERUM 135 mmol/L (136-145); TOTAL PROTEIN, SERUM 6.8 g/dL (6.4-8.2); UREA NITROGEN, BLOOD 43 mg/dL (7-18)
[2024-09-14 07:35] VITALS: TEMP 98.4
[2024-09-14 21:33] VITALS: TEMP 99.5
[2024-09-15 03:14] VITALS: TEMP 98.9
[2024-09-15 04:14] VITALS: TEMP 98.9
[2024-09-15 07:34] VITALS: TEMP 98.5
[2024-09-15] MEDS: TUBERCULIN,PURIF.PROT.DERIV. 5 TU/0.1 ML TEST ID ONE (15:15)
[2024-09-15 19:52] VITALS: TEMP 99
[2024-09-16 07:28] VITALS: TEMP 97.5
[2024-09-16 20:25] VITALS: TEMP 97.2
[2024-09-17 07:51] VITALS: TEMP 97.8
[2024-09-17 20:00] VITALS: TEMP 97
[2024-09-18 08:30] VITALS: TEMP 97.6
[2024-09-18 20:00] VITALS: TEMP 97.6
[2024-09-19 08:00] VITALS: TEMP 98
[2024-09-19 20:00] VITALS: TEMP 98.2
[2024-09-20 08:09] VITALS: TEMP 98.5
[2024-09-20 20:20] VITALS: TEMP 98.2
[2024-09-21 07:39] VITALS: TEMP 98.6
[2024-09-21 20:00] VITALS: TEMP 97.6
[2024-09-21] MEDS: MAGNESIUM HYDROXIDE 30 ML LIQUID UDC GT SCH (21:14)
[2024-09-22 07:33] VITALS: TEMP 97.7
[2024-09-22 10:00] VITALS: O2SAT 99
[2024-09-22 19:50] VITALS: TEMP 98.2
[2024-09-23 07:44] VITALS: TEMP 98.5
[2024-09-24 08:00] VITALS: BP 140/80; TEMP 97.8; TEMP 98.9; O2SAT 98
[2024-09-24] MEDS ORDERED: JEVITY 1.2 1000 ML LIQUID GT PRN (16:45)
[2024-09-24 17:40] VITALS: BP 130/70; TEMP 98; O2SAT 98
== END 2024-09-24 22:00 | DRG 207 ==
LOC: MERGE → SA
PROVIDERS: ADMIT Internal Medicine Nephrology; ATTEND Internal Medicine Nephrology
PROC: 5A1955Z Respiratory Ventilation, Greater than 96 Consecutive Hours (ICD-10-PCS; principal; 2024-04-15)
DX: J96.11 Chronic respiratory failure with hypoxia (principal); G93.49 Other encephalopathy; F02.83 Dementia in other diseases classified elsewhere, unspecified severity, with mood disturbance; J98.11 Atelectasis; L02.211 Cutaneous abscess of abdominal wall; Z43.1 Encounter for attention to gastrostomy; J90 Pleural effusion, not elsewhere classified; E87.1 Hypo-osmolality and hyponatremia; Z16.24 Resistance to multiple antibiotics; K94.23 Gastrostomy malfunction; D64.9 Anemia, unspecified; E11.9 Type 2 diabetes mellitus without complications; E78.5 Hyperlipidemia, unspecified; G20.A1 Parkinson's disease without dyskinesia, without mention of fluctuations; F31.9 Bipolar disorder, unspecified; H10.9 Unspecified conjunctivitis; R13.10 Dysphagia, unspecified; Z93.0 Tracheostomy status; I25.10 Atherosclerotic heart disease of native coronary artery without angina pectoris; I25.2 Old myocardial infarction; J96.12 Chronic respiratory failure with hypercapnia; K26.9 Duodenal ulcer, unspecified as acute or chronic, without hemorrhage or perforation; K44.9 Diaphragmatic hernia without obstruction or gangrene; K80.20 Calculus of gallbladder without cholecystitis without obstruction; K82.8 Other specified diseases of gallbladder; N20.0 Calculus of kidney; N40.0 Benign prostatic hyperplasia without lower urinary tract symptoms; S80.821A Blister (nonthermal), right lower leg, initial encounter; X58.XXXA Exposure to other specified factors, initial encounter; Y93.9 Activity, unspecified; Y92.230 Patient room in hospital as the place of occurrence of the external cause; Z86.14 Personal history of Methicillin resistant Staphylococcus aureus infection; Z79.4 Long term (current) use of insulin; K56.41 Fecal impaction; E87.5 Hyperkalemia; E87.6 Hypokalemia
CPT/HCPCS: 36415; 71045; 74018; 83735; 84100; 85025; 85610; 85730; 86580; 87086; 94003; 94640; 94760; A4663; A6209; A6213; C1758; J2185; J3370; J3480; J7042; J7050; J7070; Q9963

== ENCOUNTER 2024-08-13 07:10 | Day surgery (SDC) | payer MEDICARE, OTHER ==
[2024-08-13 11:19] VITALS: TEMP 97
[2024-08-13] MEDS ORDERED: PROPOFOL 200 MG/20 ML BOTTLE ONE (20:22)
== END 2024-08-13 11:30 ==
LOC: DS 07:10
PROVIDERS: ATTEND Internal Medicine Gastroenterology
DX: R13.10 Dysphagia, unspecified (principal); K44.9 Diaphragmatic hernia without obstruction or gangrene; K31.89 Other diseases of stomach and duodenum; M19.90 Unspecified osteoarthritis, unspecified site; Z82.49 Family history of ischemic heart disease and other diseases of the circulatory system; Z80.3 Family history of malignant neoplasm of breast; Z79.899 Other long term (current) drug therapy; Z98.890 Other specified postprocedural states
CPT/HCPCS: 88312-TC; 88313-TC; J3490

== ENCOUNTER 2024-09-03 07:06 | Outpatient (CLI) | payer MEDICARE, OTHER ==
[2024-09-03] MEDS ORDERED: DIATR MEGLU/DIATRIZOATE SODIUM 120 ML BOTTLE ONE (13:21)
== END 2024-09-03 23:59 | disposition home or self-care (01) ==
LOC: CT 07:06
PROVIDERS: ATTEND Internal Medicine Gastroenterology
DX: K80.20 Calculus of gallbladder without cholecystitis without obstruction (principal); R14.0 Abdominal distension (gaseous); N13.2 Hydronephrosis with renal and ureteral calculous obstruction; K56.699 Other intestinal obstruction unspecified as to partial versus complete obstruction; J90 Pleural effusion, not elsewhere classified; J98.11 Atelectasis; N28.1 Cyst of kidney, acquired; I70.0 Atherosclerosis of aorta; M41.86 Other forms of scoliosis, lumbar region; M47.816 Spondylosis without myelopathy or radiculopathy, lumbar region; R19.5 Other fecal abnormalities
CPT/HCPCS: Q9963

== ENCOUNTER 2024-09-07 09:49 | Day surgery (SDC) | payer MEDICARE, OTHER ==
[2024-09-07] MEDS ORDERED: PHENYLEPHRINE 10 MG/1 ML VIAL ONE (15:55)
[2024-09-07 16:55] VITALS: TEMP 96.5
== END 2024-09-07 17:04 | disposition still patient (30) ==
LOC: DS 09:49 → EDSTATUS 09-08 10:30
PROVIDERS: ATTEND Internal Medicine Gastroenterology
DX: R14.0 Abdominal distension (gaseous) (principal); K63.89 Other specified diseases of intestine; Z79.899 Other long term (current) drug therapy; Z98.890 Other specified postprocedural states; Z80.3 Family history of malignant neoplasm of breast; Z83.3 Family history of diabetes mellitus